=== PATIENT | female | born 1995 | race Caucasian/White ===

== ENCOUNTER 2018-12-18 15:08 | Emergency (ER) | payer SELFPAY ==
[~2018-12-18] VITALS: Wt 47.2 kg
[2018-12-18 15:13] VITALS: BP 123/60; PULSE 91; RESP 18
[2018-12-18] MEDS ORDERED: LORAZEPAM 1 MG TAB PO ONE (17:00)
[2018-12-18] MEDS ORDERED: LORA1TAB PO (17:19)
--- NOTE | 2018-12-20 22:46 | ERD ---
ER Documentation Chief Complaint Chief Complaint FEELING PARANOIA AND ANXIETY WITH NO SI OR HI. RECENT STRESSOR. DEPRESSED HPI 23-year-old female with no significant past medical history presenting to the emergency department complaining of intermittent anxiety for the past 1 month after her father . She states she has been feeling very sad and has been grieving over the loss. She tried no medication for relief of symptoms. She adamantly denies any homicidal or suicidal ideation. She denies visual or auditory hallucinations. Symptoms are moderate in severity. She denies chest pain, palpitations, fevers, chills, or other symptoms at this time. ROS All systems reviewed and are negative except as per history of present illness. Medications Home Meds Active Scripts Lorazepam* (Lorazepam*) 1 Mg Tablet, 1 MG PO Q8H PRN for ANXIETY, #7 TAB Prov:JUNE DAVENPORT PA-C 12/18/18 PMhx/Soc Medical and Surgical Hx: pt denies Medical Hx, pt denies Surgical Hx Hx Alcohol Use: No Hx Substance Use: No Hx Tobacco Use: No Smoking Status: Never smoker FmHx Family History: No diabetes Physical Exam Vitals Vital Signs Date Temp Pulse Resp B/P (MAP) Pulse Ox O2 O2 Flow FiO2 Time Delivery Rate 12/18/18 98.0 91 18 123/60 98 15:13 (81) Physical Exam Const: No acute distress Head: Atraumatic Eyes: Normal Conjunctiva ENT: Normal External Ears, Nose and Mouth. Neck: Full range of motion. No meningismus. Resp: Clear to auscultation bilaterally Cardio: Regular rate and rhythm, no murmurs Abd: Soft, non tender, non distended. Normal bowel sounds Skin: No petechiae or rashes Back: No midline or flank tenderness Ext: No cyanosis, or edema Neur: Awake and alert Psych: Anxious and tearful. Adamantly denies homicidal or suicidal ideations. Results 24 hrs Current Medications Medications Dose Sig/Pilo Start Time Status Last (Trade) Ordered Route PRN Stop Time Admin Dose Reason Admin Lorazepam 1 mg ONCE ONCE 12/18/18 DC 12/18/18 (Ativan) PO 17:00 16:45 12/18/18 17:01 Procedures/MDM 23-year-old female resenting to the emergency department with signs and symptoms most consistent with anxiety and grief reaction. Patient recently lost her father and has been very upset due to this. She adamantly denies any homicidal or suicidal ideation. She denies any chest pain. She was administered Ativan in the department with good response. On reevaluation she was significantly improved and states she is comfortable being discharged at this time with further outpatient management. She will be given prescription for 7 tablets of 1 mg Ativan and advised to follow-up with her primary care physician, psychologi st, and psychiatrist if indicated. The patient was in agreement with the diagnosis, plan, need for follow-up, return precautions. No evidence of life- threatening or emergent pathology at time of discharge. Departure Diagnosis: Primary Impression: Anxiety reaction Condition: Fair Patient Instructions: Grief and Loss, Anxiety Reaction Referrals: [facility] YOU HAVE RECEIVED A MEDICAL SCREENING EXAM AND THE RESULTS INDICATE THAT YOU DO NOT HAVE A CONDITION THAT REQUIRES URGENT TREATMENT IN THE EMERGENCY DEPARTMENT. FURTHER EVALUATION AND TREATMENT OF YOUR CONDITION CAN WAIT UNTIL YOU ARE SEEN IN YOUR DOCTORS OFFICE WITHIN THE NEXT 1-2 DAYS. IT IS YOUR RESPONSIBILITY TO MAKE AN APPOINTMENT FOR FOLOW-UP CARE. IF YOU HAVE A PRIMARY DOCTOR --you should call your primary doctor and schedule an appointment IF YOU DO NOT HAVE A PRIMARY DOCTOR YOU CAN CALL OUR PHYSICIAN REFERRAL HOTLINE AT IF YOU CAN NOT AFFORD TO SEE A PHYSICIAN YOU CAN CHOSE FROM THE FOLLOWING [facility] [address] [facility]. [facility] [address] [facility] [facility] [address] [facility] [address] [facility]. [facility] [address]. [facility]. [address] Additional Instructions: Call your primary care doctor TOMORROW for an appointment during the next 1-2 days.See the doctor sooner or return here if your condition worsens before your appointment time. JUNE DAVENPORT PA-C December 20, 2018 22:46
== END 2018-12-18 17:43 | disposition home or self-care (01) ==
LOC: FTE 15:08
DX: F41.1 Generalized anxiety disorder (principal)
CPT/HCPCS: 99283